=== PATIENT | female | born 1995 | race Caucasian/White ===

== ENCOUNTER 2018-07-08 15:27 | Emergency (ER) | payer MEDICAID ==
[2018-07-08 15:38] VITALS: BP 119/74
--- NOTE | 2018-07-08 15:47 | ED Physician Documentation ---
PD HPI MHE - Stated complaint Stated Complaint: MHE - Chief complaint Chief Complaint: General - History obtained from History obtained from: Patient - History of Present Illness Primary symptom: Depression, Other (insomnia). No: Suicidal ideation, Suicide attempt Timing - onset: How many months ago (she has had nursing home depression and insomnia that is worse the past few months. Just with new insurance, so mom brought her here to get connected with providers and hopefully started on meds. Patient willing to try antidepressants. Had tried Prozac and Paxil in the past but felt lightheaded/side effects so stopped them within 1-2 weeks. Is wanting to try another. Also requesting something for sleep; has tried Benadryl and Melatonin. 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 did finish high school.). No: Substance abuse - ETOH, Substance abuse - drugs Similar symptoms before: Diagnosis (major depression) Recently seen: Not recently seen (had been couple years since counseling.) Review of Systems Constitutional: denies: Fever Nose: denies: Rhinorrhea / runny nose, Congestion Throat: denies: Sore throat Respiratory: denies: Cough PD PAST MEDICAL HISTORY - Past Medical History Cardiovascular: None Respiratory: None Neuro: None Endocrine/Autoimmune: None - Present Medications Home Medications: Ambulatory Orders Medication Instructions Recorded Confirmed Cholecalciferol (Vitamin D3) 2,000 unit PO DAILY #30 capsule 07/08/18 [Vitamin D] Citalopram Hydrobromide [Celexa] 20 mg PO DAILY #30 tablet 07/08/18 Trazodone HCl 25 - 50 mg PO QPM PRN #15 tablet 07/08/18 - Allergies Allergies/Adverse Reactions: Allergies Allergy/AdvReac Type Severity Reaction Status Date / Time No Known Drug Allergies Allergy Verified 07/08/18 15:37 PD ED PE NORMAL - Vitals Vital signs reviewed: Yes - General General: Alert and oriented X 3, No acute distress, Well developed/nourished - Neck Neck: Supple, no meningeal sign, No adenopathy, Thyroid normal - Cardiac Cardiac: RRR, No murmur - Respiratory Respiratory: Clear bilaterally - Abdomen Abdomen: Soft, Non tender - Derm Derm: Normal color, Warm and dry Results - Vitals Vitals: Vital Signs - 24 hr 07/08/18 15:32 Temperature 37.1 C Heart Rate 93 Respiratory 14 Rate Blood Pressure 119/74 O2 Saturation 99 Oxygen O2 Source Room air PD MEDICAL DECISION MAKING - ED course Complexity details: reviewed results (suggested getting some tests such as chemistry and thyroid, but patient declined. 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 Had been on prior SSRIs with side effects in first couple weeks so stopped. Is wanting to try another one and will stay with it for a month. Also having insomnia. Had changed from mother's insurance to new one, so having to start with new providers and counseling; given referral for local providers (insurance is 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 (Social Work busy at this time) Departure - Departure Disposition: Home, Self Care Clinical Impression: Depression Qualifiers: Depression Type: major depressive disorder Major depression recurrence: unspecified whether recurrent Active/Remission status: currently active Major depression episode severity: unspecified Qualified Code(s): F32.9 - Major depressive disorder, single episode, unspecified Insomnia Qualifiers: Insomnia type: unspecified Qualified Code(s): G47.00 - Insomnia, unspecified Condition: Stable Record reviewed to determine appropriate education?: Yes Instructions: ED Depression, ED Insomnia Follow-Up: [facility] [Provider Group] [facility] [Provider Group] [facility] [Provider Group] Prescriptions: Cholecalciferol (Vitamin D3) [Vitamin D] 2,000 unit PO DAILY #30 capsule Citalopram Hydrobromide [Celexa] 20 mg PO DAILY #30 tablet Trazodone HCl 25 - 50 mg PO QPM PRN #15 tablet PRN Reason: Insomnia Comments: Stay well-hydrated. Try to exercise even brief walks outdoors for 20 minutes at a time 3 times a week will improve your depression and mood quite a bit. Eat regularly well and minimize "junk food". Regular sleep is good and use the trazodone half to 1 tablet at night if needed as a sleep aid. For your mood and depression overall, start vitamin D supplement as directed and also citalopram antidepressant. Call local clinics as well as [facility] or 1 of the counseling groups for follow-up regarding counseling and also ongoing medication for the depression. Discharge Date/Time: 07/08/18 16:33
== END 2018-07-08 16:33 | disposition home or self-care (01) ==
LOC: ED 15:27
DX: F32.9 Major depressive disorder, single episode, unspecified (principal); G47.00 Insomnia, unspecified
CPT/HCPCS: 99283